=== PATIENT | male | born 1950 | race Caucasian/White ===

== ENCOUNTER 2017-12-18 01:10 | Day surgery (SDC) | payer MEDICARE, OTHER ==
[~2017-12-18] VITALS: Ht 182.9 cm; Wt 95.7 kg
[2017-12-18] VITALS (7 sets, daily range): BP systolic 102–130; BP diastolic 72–80
[~2017-12-18 01:10] MED LIST: EZE10 PO; METF-420 PO; SIMV-54 PO
[2017-12-18] MEDS ORDERED: PROPOFOL EMUL(*) 10MG/ML 20 ML 40 ML ONE (06:55)
[2017-12-18] MEDS ORDERED: LIDOCAINE/SOD BICARB 8.4% SYR ID ONE (08:00)
[2017-12-18] MEDS ORDERED: NORMOSOL R SOLN(*) 1000 ML BAG 1,000 ML IV PRN (08:00)
[2017-12-18] MEDS ORDERED: MIDAZOLAM 2 MG/2 ML VIAL IVP PRN (08:00)
[2017-12-18] MEDS ORDERED: PROPOFOL EMUL(*) 10MG/ML 20 ML 20 ML ONE ×2 (08:27→08:45)
== END 2017-12-18 10:30 | disposition home or self-care (01) ==
LOC: OR 01:10
PROVIDERS: ATTEND Internal Medicine
DX: Z12.11 Encounter for screening for malignant neoplasm of colon (principal); D12.0 Benign neoplasm of cecum; Z80.0 Family history of malignant neoplasm of digestive organs; E11.9 Type 2 diabetes mellitus without complications
CPT/HCPCS: 00811; 36416; 45380; 82948; 88305; J2704